=== PATIENT | male | born 1995 | race Caucasian/White ===

== ENCOUNTER 2019-09-03 17:03 | Emergency (ER) | payer OTHER, SELFPAY ==
--- NOTE | ~2019-09-03 | XR_ITS ---
EXAMINATION:XR cervical spine 4-5V DATE: 09/03/2019 18:30 INDICATION: Neck pain TECHNIQUE: AP, lateral, lateral swimmers and odontoid views of the cervical spine are provided. COMPARISON: None FINDINGS: Alignment is normal. The odontoid is intact. No fracture is identified. Vertebral body heig hts and disk spaces are normal. Prevertebral soft tissues are normal. IMPRESSION: 1. Normal cervical spine Reviewed, dictated and finalized at location A. IMPRESSION: 1. Normal cervical spine
[2019-09-03 17:13] VITALS: BP 136/86; PULSE 83; RESP 18; TEMP 36.4; O2SAT 99
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
[2019-09-03 19:31] VITALS: BP 114/73; PULSE 88; RESP 18; TEMP 37.1; O2SAT 98
== END 2019-09-03 19:33 | disposition home or self-care (01) ==
PROVIDERS: Emergency Provider Family Medicine
DX: S16.1XXA Strain of muscle, fascia and tendon at neck level, initial encounter (principal); V49.40XA Driver injured in collision with unspecified motor vehicles in traffic accident, initial encounter
CPT/HCPCS: 72050; 99283

== ENCOUNTER 2019-12-23 15:07 | Emergency (ER) | payer OTHER, SELFPAY ==
[2019-12-23 15:45] VITALS: BP 141/91; PULSE 72; RESP 16; TEMP 37.4; O2SAT 100
--- NOTE | 2019-12-23 16:48 | ED.EYEPROB ---
HPI - Eye Problem General Chief complaint: Eye Problems <Fernie Billy PA-C - Last Filed: 12/23/19 16:56> Stated complaint: FB eye <Fernie Billy PA-C - Last Filed: 12/23/19 16:56> Time Seen by Provider: 12/23/19 15:49 <Fernie Billy PA-C - Last Filed: 12/23/19 16:56> Source: patient <Fernie Billy PA-C - Last Filed: 12/23/19 16:56> Mode of arrival: ambulatory <Fernie Billy PA-C - Last Filed: 12/23/19 16:56> Limitations: no limitations <Fernie Billy PA-C - Last Filed: 12/23/19 16:56> History of Present Illness HPI Narrative: Patient is a 24-year-old male who presents with left eye irritation noting that he got some adhesive into the left eye irrigated for a period and presents with conjunctival injection and irritation. Patient denies any other injury or trauma or exposure. Patient otherwise resting comfortably in the room in no distress has not taken anything for his symptoms <Fernie Billy PA-C - Last Filed: 12/23/19 16:56> Related Data Allergies/adverse reactions: Allergies Allergy/AdvReac Type Severity Reaction Status Date / Time No Known Allergies Allergy Mild Verified 12/23/19 15:07 <Fernie Billy PA-C - Last Filed: 12/23/19 16:56> Review of Systems Review of Systems: All systems reviewed & are unremarkable except as noted in HPI and below <Fernie Billy PA-C - Last Filed: 12/23/19 16:56> [facility] Past Medical History Medical History: Medical History Healthy adult <Fernie Billy PA-C - Last Filed: 12/23/19 16:56> Surgical History Surgical History: Surgical History No pertinent past surgical history <Fernie Billy PA-C - Last Filed: 12/23/19 16:56> Social History Social History: Social History Smoking status: Never smoker Alcohol intake: never Gender identity (if verbalized by the patient): Male <RAVI Hurd Last Filed: 12/23/19 16:56> Exam Narrative: Exam Narrative: GENERAL: Well-appearing, well-nourished, and in no acute distress. HEAD: Normocephalic, atraumatic. EYES: PERRLA and EOMI. slight conjunctival injection no discharge no foreign bodies eyelids everted negative fluorescein uptake ENT: Nares clear, no rhinorrhea or epistaxis. Mucous membranes moist. Oropharynx without tonsillar hypertrophy exudate or other lesions. CHEST: Clear to auscultation. No respiratory distress. No wheezes rales or rhonchi HEART: Regular rate and rhythm. No murmur heard. EXTREMITIES: Normal range of motion. No edema. SKIN: Warm, dry, no rash. NEURO: No focal deficits. Alert and oriented x3. Cranial nerves II through XII grossly intact PSYCH: Normal mood and affect. <RAVI Hurd Last Filed: 12/23/19 16:56> Course Course Emergency Course: Patient in the room at this time aware of case findings treatment plan and diagnosis agreeing to follow-up with ophthalmology also provided with reasons to return <RAVI Hurd Last Filed: 12/23/19 16:56> Vital Signs Vital signs: Vital Signs Temperature 99.4 F 12/23/19 15:45 Pulse Rate 72 12/23/19 15:45 Respiratory Rate 16 12/23/19 15:45 Blood Pressure 141/91 H 12/23/19 15:45 Pulse Oximetry 100 12/23/19 15:45 Temperature 99.4 F 12/23/19 15:45 Pulse Rate 72 12/23/19 15:45 Respiratory Rate 16 12/23/19 15:45 Blood Pressure 141/91 H 12/23/19 15:45 Pulse Oximetry 100 12/23/19 15:45 <RAVI Hurd Last Filed: 12/23/19 16:56> Vital Signs Temperature 99.4 F 12/23/19 15:45 Pulse Rate 72 12/23/19 15:45 Respiratory Rate 16 12/23/19 15:45 Blood Pressure 141/91 H 12/23/19 15:45 Pulse Oximetry 100 12/23/19 15:45 Temperature 99.4 F 12/23/19 15:45 Pulse Rate 72 12/23/19 15:45
== END 2019-12-23 17:04 | disposition home or self-care (01) ==
PROVIDERS: Emergency Provider Emergency Medicine
DX: T65.891A Toxic effect of other specified substances, accidental (unintentional), initial encounter (principal); H10.212 Acute toxic conjunctivitis, left eye
CPT/HCPCS: 99283; A9270